=== PATIENT | female | born 2000 | race Caucasian/White ===

== ENCOUNTER 2025-02-22 19:40 | Emergency (ER) | payer OTHER, SELFPAY ==
[2025-02-22 19:49] VITALS: BP 132/92
--- NOTE | 2025-02-22 22:21 | ED.SKININJ ---
HPI-Injury
General
Chief Complaint: Head Injury
Source: patient
Exam Limitations: none
Time Seen by Provider: 02/22/25 22:13
History of Present Illness-Injury
Initial Injury comments:
24-year-old female presents for evaluation of head injury. She was at work today at [employer] she bent over to pick something off the floor and hit her head against a stone table. There was no loss of consciousness. She noted worsening headache
with blurry vision and dizziness. She was also slightly nauseous. Initially seen at the urgent care and sent here for further evaluation. She notes a slight right sided neck pain. She states the blurry vision and dizziness have improved. She is
not anticoagulated. No other points
Phy Exam
Physical Exam
Physical Exam:
General: Well-appearing female no acute distress
HEENT normal cephalic mild scalp hematoma noted to the posterior superior scalp pupils equal round reactive to light TMs normal no periorbital ecchymosis
Musculoskeletal exam: No midline tenderness over the cervical spine.
Extremities: No cyanosis or edema
Neurologic exam normal gait alert and oriented finger-nose intact conversing appropriately
Course
Orders/Labs/Results
Orders:
Orders
02/22/25 19:55
CT Head W/o Iv Contrast Urgent
Comment:
Reason For Exam: head injury
Vital Signs
Initial and Last Documented VS:
Initial Vital Signs
Pulse Resp BP Pulse Ox
68 18 132/92 99
02/22/25 19:49 02/22/25 19:49 02/22/25 19:49 02/22/25 19:49
Last Documented Vital Signs
Pulse Resp BP Pulse Ox
68 18 132/92 99
02/22/25 19:49 02/22/25 19:49 02/22/25 19:49 02/22/25 19:49
MDM/Problems Addressed
Differential Diagnosis Includes:
Head injury. Consider contusion versus concussion versus fracture or intracranial hemorrhage. Low energy mechanism but sent in to rule out head bleed. CT of the head was ordered through triage which was reviewed and is negative for acute finding.
Patient reassured. Concussion precautions given. Stable for discharge
*Pulse Oximetry
SaO2: 99
Patient hypoxic: no
*Critical Care Note
Total Time (30-74mins, 75-104mins- exclusive of procedures): Not Applicable
ED Attending Note
-
Portions of this chart may have been created with voice recognition software.� Occasional wrong word or��sound alike� substitutions may have occurred due to the inherent limitations of voice recognition software.
Discharge Plan
Departure
Patient Disposition: Home (Routine Discharge)
Date of Disposition: 02/22/25
Time of Disposition: 22:24
Patient with high blood pressure during this ER visit?: No
Discharge Problem:
Head injury
Stand Alone Forms: Return to Work
Activity Restrictions/Additional Instructions:
Rest. Use ibuprofen or Tylenol for pain. Return if worse otherwise follow-up with your doctor. Return to activities and slow stepwise fashion as tolerated
Interventions
Interventions:
*Risk Screen - Suicide Last Done: 02/22/25 19:52
*General Assessment Last Done: 02/22/25 19:52
*Neglect/Abuse Screening Last Done: 02/22/25 19:52
*ED COVID-19 Vaccine History Last Done: 02/22/25 19:52
*ED Influenza Vaccine History Last Done: 02/22/25 19:52
Discharge Date and Time
Print Language: BARBADIAN
[2025-02-22 22:30] VITALS: BP 132/70
== END 2025-02-22 22:32 | disposition home or self-care (01) ==
LOC: EMR 19:40
PROVIDERS: EMERGENCY PHYSICIAN Emergency Medicine; FAMILY PHYSICIAN Nurse Practitioner Adult Health
DX: S09.90XA Unspecified injury of head, initial encounter (principal); X50.1XXA Overexertion from prolonged static or awkward postures, initial encounter
CPT/HCPCS: 99284; 70450